=== PATIENT | female | born 1960 | race Caucasian/White ===

== ENCOUNTER 2022-06-24 12:43 | Emergency (ER) | payer MEDICAID ==
[2022-06-24 12:51] VITALS: BP 147/78
[2022-06-24] MEDS ORDERED: HYDROcod/ACETAM 5/325 MG TABLET PO STA (13:07)
--- NOTE | 2022-06-24 13:08 | ED Physician Documentation ---
History of Present Illness - Stated complaint Stated Complaint: R SIDE FACE PX, SWOLLEN - Chief complaint Chief Complaint: Heent - History obtained from History obtained from: Patient - Additonal information Additional information: 2 days ago developed painful rash of the right upper eyelid and radiating back on the right side of the scalp. She does have a bad tooth on that side and wonders if it might be related. PD PAST MEDICAL HISTORY - Present Medications Home Medications: Ambulatory Orders Medication Instructions Recorded Confirmed Bupropion HCl [Wellbutrin Xl] 300 mg PO DAILY 06/24/22 06/24/22 HYDROcod/ACETAM 5/325 [[place] 5/325] 1 - 2 tab PO Q6H PRN #15 tablet 06/24/22 Valacyclovir HCl [Valtrex] 1,000 mg PO TID #30 tablet 06/24/22 predniSONE [Deltasone] 20 mg PO [id number] #21 tab 06/24/22 - Allergies Allergies/Adverse Reactions: Allergies Allergy/AdvReac Type Severity Reaction Status Date / Time Iodinated Contrast Media Allergy Anaphylaxis Verified 06/24/22 12:48 PD ED PE NORMAL - Vitals Vital signs reviewed: Yes - General General: Alert and oriented X 3, No acute distress - HEENT HEENT: PERRL, EOMI, Other (She has zoster in the V1 dermatome, does not affect the eye or the nose. It is all the forehead and scalp.) - Neuro Neuro: Alert and oriented X 3, chief projectionist 2-12 intact, Normal speech Results - Vitals Vitals: Vital Signs - 24 hr 06/24/22 12:48 Temperature 36.5 C Heart Rate 70 Respiratory 16 Rate Blood Pressure 147/78 H O2 Saturation 100 Oxygen O2 Source Room air PD Medical Decision Making - ED course ED course: Shingles in the V1 dermatome but without radiation toward the eye or the nose. We will treat with Valtrex, prednisone taper, and pain control. Departure - Departure Disposition: 01 Home, Self Care Clinical Impression: Shingles Condition: Good Record reviewed to determine appropriate education?: Yes Instructions: ED Shingles Prescriptions: predniSONE [Deltasone] 20 mg PO [id number] #21 tab HYDROcod/ACETAM 5/325 [[place] 5/325] 1 - 2 tab PO Q6H PRN #15 tablet PRN Reason: Pain Valacyclovir HCl [Valtrex] 1,000 mg PO TID #30 tablet Comments: I sent your prescription electronically to the [facility] at [facility] [address] here in [place]. Follow-up with your doctor Wednesday for recheck. Return for new or worsening symptoms. I am prescribing a short course of narcotic pain medication for you. These are potentially dangerous and addictive medications that should be used carefully. These medications may constipate you. Take an fsry-ytj-urnlxtx stool softener (docusate) twice daily with plenty of water while taking these medications. If you go 24 hours without a bowel movement, take labu-fjn-wdjzngl miralax, per package instructions. Do not drink or drive while taking these medications. If you received narcotic or sedating medications while in the emergency department, do not drive for 24 hours. Store this medication in a safe, secure place and out of reach of children. It is a violation of federal law to give or sell this medication to another person or to use in a manner other than prescribed. The ED will not refill narcotic prescriptions, including prescriptions lost or stolen. To dispose of unwanted medications: 1. [facility] [address] in [place] has a medication drop box. They accept prescription medications (in pill form) Wednesday through Wednesday 9:00 a.m. to 5:00 p.m. 2. The [facility] accepts prescription medications (in pill form only) for disposal year round. Call for more information. 3. Contact the [facility] for the next [facility] sponsored prescription drug collection event. , [phone], or [phone]; Note that many narcotic pain relievers also contain Tylenol/acetaminophen. Please ensure that your total dose of acetaminophen from all sources does not exceed 3 g (3000 mg) per day.
== END 2022-06-24 13:22 | disposition home or self-care (01) ==
LOC: ED 12:43
DX: B02.9 Zoster without complications (principal)
CPT/HCPCS: 99283; A9270

== ENCOUNTER 2023-10-08 08:57 | Emergency (ER) | payer MEDICAID ==
[2023-10-08] MEDS: SODIUM CHLORIDE 0.9% 1,000 ML IV STA (09:42)
[2023-10-08 09:43] LABS: BASOPHILS # (AUTO) 0.1 10^3/uL (0.0-0.1); BASOPHILS % (AUTO) 0.8 %; HCT - HEMATOCRIT 40.2 % (37.0-47.0); HGB - HEMOGLOBIN 13.2 g/dL (12.0-16.0); LYMPHOCYTES # (AUTO) 1.9 10^3/uL (1.5-3.5); LYMPHOCYTES % (AUTO) 29.4 %; MEAN CORPUSCULAR HEMOGLOBIN 30.7 pg (27.0-31.0); MEAN CORPUSCULAR HGB CONC 32.8 g/dL (32.0-36.0); MEAN CORPUSCULAR VOLUME 93.5 fL (81.0-99.0); MEAN PLATELET VOLUME 12.5 fL (7.9-10.8); MONOCYTES # (AUTO) 0.4 10^3/uL (0.0-1.0); MONOCYTES % (AUTO) 6.7 %; NEUTROPHILS % (AUTO) 62.9 %; PLT - PLATELET COUNT 254 10^3/uL (130-450); RED CELL DISTRIBUTION WIDTH 12.2 % (12.0-15.0); WHITE BLOOD COUNT 6.4 x10^3/uL (4.8-10.8)
[2023-10-08 09:59] LABS: ALBUMIN 4.2 g/dL (3.2-5.5); ALBUMIN/GLOBULIN RATIO 1.4 (1.0-2.2); BILIRUBIN,TOTAL 0.6 mg/dL (0.2-1.0); CALCIUM 10.1 mg/dL (8.5-10.3); CREATININE 0.8 mg/dL (0.6-1.3); MAGNESIUM 1.8 mg/dL (1.7-2.3); PHOSPHORUS 3.7 mg/dL (2.5-5.0); POTASSIUM 4.1 mmol/L (3.5-4.5); TOTAL PROTEIN 7.3 g/dL (6.4-8.9)
--- NOTE | 2023-10-08 10:03 | ED Physician Documentation ---
PD HPI ABD PAIN - Stated complaint Stated Complaint: ABD PX/SWELLING - Chief complaint Chief Complaint: Abd Pain - History obtained from History obtained from: Patient - History of Present Illness Pain level max: 5 Pain level now: 5 Quality: Cramping, Pain Location: All over / everywhere Improved by: No: Eating, Laying still, Vomiting, BM, Position Worsened by: Moving, Palpation. No: Eating, Breathing Associated symptoms: Dizzy (States feels mildly lightheaded if she stands up quickly). No: Fever, Vomiting, Hematemesis, Diarrhea, Constipation, Melena, Hematochezia, Dysuria, Hematuria, Chest pain, Vaginal dc, Testicular pain - Additional information Additional information: Patient is a 63-year-old female who presents to the emergency department stating that she had a colonoscopy at [facility] 5 days ago. She states that she has had abdominal cramping and pain since that time. She has had chills and felt "weak". No fevers. She contacted her physician who performed the colonoscopy and they recommended that she come in for a CAT scan to evaluate for perforation. She states that they did do biopsies and "burned something". Review of Systems Constitutional: denies: Fever, Chills GI: denies: Vomiting, Diarrhea Skin: denies: Rash Musculoskeletal: denies: Neck pain, Back pain Neurologic: denies: Headache PD PAST MEDICAL HISTORY - Past Medical History Past Medical History: Yes Other Past Medical History: polyps colon - Past Surgical History General: Cholecystectomy, Colonoscopy /SIDE LASTER: Hysterectomy - Present Medications Home Medications: Ambulatory Orders Medication Instructions Recorded Confirmed HYDROcod/ACETAM 5/325 [[place] 5/325] 1 - 2 tab PO Q6H PRN #15 tablet 06/24/22 Valacyclovir HCl [Valtrex] 1,000 mg PO TID #30 tablet 06/24/22 buPROPion HCL [Wellbutrin Xl] 300 mg PO DAILY 06/24/22 06/24/22 predniSONE [Deltasone] 20 mg PO [id number] #21 tab 06/24/22 - Allergies Allergies/Adverse Reactions: Allergies Allergy/AdvReac Type Severity Reaction Status Date / Time Iodinated Contrast Media Allergy Anaphylaxis Verified 10/08/23 09:04 - Social History Does the pt smoke?: No Smoking Status: Never smoker Does the pt drink ETOH?: Yes Does the pt have substance abuse?: No - Immunizations Immunizations are current?: Yes PD ED PE NORMAL - Vitals Vital signs reviewed: Yes - General General: Alert and oriented X 3, No acute distress - HEENT HEENT: Moist mucous membranes - Neck Neck: Supple, no meningeal sign - Cardiac Cardiac: RRR - Respiratory Respiratory: Clear bilaterally - Abdomen Abdomen: Soft, Non distended, Other (Mildly tender to palpation diffusely, no peritoneal signs) - Derm Derm: Warm and dry - Extremities Extremities: No edema, No calf tenderness / cord - Neuro Neuro: Alert and oriented X 3 - Psych Psych: Normal mood, Normal affect Results - Vitals Vitals: Vital Signs - 24 hr 10/08/23 10/08/23 10/08/23 09:00 11:04 12:21 Temperature 36.5 C 36.3 C L Heart Rate 73 61 64 Respiratory 16 16 15 Rate Blood Pressure 158/82 H 144/79 H 143/76 H O2 Saturation 100 99 98 Oxygen O2 Source Room air - Labs Labs: Laboratory Tests 10/08/23 10/08/23 10/08/23 09:37 09:37 11:53 WBC 6.4 RBC 4.30 Hgb 13.2 Hct 40.2 MCV 93.5 MCH 30.7 MCHC 32.8 RDW 12.2 Plt Count 254 MPV 12.5 H Neut # (Auto) 4.0 Lymph # (Auto) 1.9 [place] # (Auto) 0.4 Eos # (Auto) 0.0 Baso # (Auto) 0.1 Absolute Nucleated RBC 0.00 Nucleated RBC % 0.0 Sodium 138 Potassium 4.1 Chloride 104 Carbon Dioxide 28 Anion Gap 6.0 BUN 14 Creatinine 0.8 Estimated GFR (MDRD) 72 L Glucose 99 Calcium 10.1 Phosphorus 3.7 Magnesium 1.8 Total Bilirubin 0.6 AST 21 ALT 21 Alkaline Phosphatase 68 Total Protein 7.3 Albumin 4.2 Globulin 3.1 Albumin/Globulin Ratio 1.4 Lipase 15 Urine Color YELLOW Urine Clarity CLEAR Urine pH 6.0 Ur Specific [place] 1.010 Urine Protein NEGATIVE Urine Glucose (UA) NEGATIVE Urine Ketones NEGATIVE Urine Occult Blood NEGATIVE Urine Nitrite NEGATIVE Urine Bilirubin NEGATIVE Urine Urobilinogen 0.2 (NORMAL) Ur Leukocyte Esterase SMALL H Urine RBC None Seen Urine WBC 4-5 Ur Squamous Epith Cells MOD Squamous H Urine Bacteria Few Ur Microscopic Review INDICATED Urine Culture Comments NOT INDICATED - Rads (name of study) CT abdomen pelvis Relevant Findings:: Final report received, See rad report PD Medical Decision Making - ED course Complexity details: reviewed results, re-evaluated patient, considered differential, d/w patient ED course: 63-year-old female with abdominal pain and feeling generally unwell since a colonoscopy 4 days ago. No significant lab abnormalities. Feels better after IV fluids. Ambulating with a normal steady gait in the emergency department. No focal neurological deficits. No cerebellar findings. GCS 15. No acute findings on CT scan. No evidence of perforation or abscess. No evidence of sepsis. Recommend that she increase her fluid intake and follow-up closely with her GI provider for further care. She will return if she worsens including fevers, worsening pain or other new or worrisome symptoms. Patient counseled regarding signs and symptoms for which I believe and urgent re-evaluation would be necessary. Patient with good understanding of and agreement to plan and is comfortable going home at this time This document was made in part using voice recognition software. While efforts are made to proofread this document, sound alike and grammatical errors may occur. Departure - Departure Disposition: 01 Home, Self Care Clinical Impression: Abdominal pain Qualifiers: Abdominal location: unspecified location Qualified Code(s): R10.9 - Unspecified abdominal pain Condition: Good Instructions: ED Abdominal Pain Female Non-Specific Abdominal Pain Follow-Up: your,doctor in 1 week [Other] Comments: Please follow-up with your doctor for further care. Your CT scan does not show any acute abnormalities. Your laboratory testing does not show any acute abnormalities to explain your symptoms either. Your electrolytes are normal, your blood counts are normal. Please make sure you are drinking plenty of water at home and return if you worsen. EXAM: [id number] CT/ABPEWO ([id number]) PROCEDURE: Abdomen/Pelvis WO INDICATIONS: abd pain s/p colonoscopy TECHNIQUE: A CT scan of the abdomen and pelvis was performed without the use of intravenous contrast. Images were recorded and evaluated at appropriate window settings. Reformats: coronal and sagittal. For radiation dose reduction, the following was used: automated exposure control, adjustment of mA and/or kV according to patient size. COMPARISON: None. FINDINGS: Image quality: Diagnostic. Lower chest: Unremarkable. Liver: No contour-deforming mass. Gallbladder: Removed. Biliary tree: No intrahepatic or extrahepatic dilation, accounting for age. Spleen: No splenomegaly. Pancreas: No pancreatic ductal dilation. Adrenals: No adrenal nodule. Kidneys and ureters: No hydronephrosis. No contour-deforming mass. Stomach, bowel and peritoneum: No gastric or small bowel dilation. No abnormal wall thickening. No pathologic free fluid. Colonic diverticular present without associated inflammatory change. Lymph nodes: No central or retroperitoneal adenopathy. Vessels: No infrarenal aortic aneurysm. Reproductive organs: Unremarkable. Bladder: Bladder wall thickness is normal, accounting for underdistention. No calcified bladder stones. Pelvic lymph nodes: No adenopathy by size criteria. Bones: No aggressive osseous abnormality. Other: No inguinal hernia. Fat-containing ventral hernia. IMPRESSION: No free air or free fluid. Diverticulosis. Forms: PCP List Discharge Date/Time: 10/08/23 12:23
[2023-10-08] MEDS ORDERED: iohexoL-300 100 ML VIAL ONE (10:21)
--- NOTE | 2023-10-08 11:44 | CT Report ---
PROCEDURE: Abdomen/Pelvis WO INDICATIONS: abd pain s/p colonoscopy TECHNIQUE: A CT scan of the abdomen and pelvis was performed without the use of intravenous contrast. Images we re recorded and evaluated at appropriate window settings. Reformats: coronal and sagittal. For radiat ion dose reduction, the following was used: automated exposure control, adjustment of mA and/or kV ac cording to patient size. COMPARISON: None. FINDINGS: Image quality: Diagnostic. Lower chest: Unremarkable. Liver: No contour-deforming mass. Gallbladder: Removed. Biliary tree: No intrahepatic or extrahepatic dilation, accounting for age. Spleen: No splenomegaly. Pancreas: No pancreatic ductal dilation. Adrenals: No adrenal nodule. Kidneys and ureters: No hydronephrosis. No contour-deforming mass. Stomach, bowel and peritoneum: No gastric or small bowel dilation. No abnormal wall thickening. No pa thologic free fluid. Colonic diverticular present without associated inflammatory change. Lymph nodes: No central or retroperitoneal adenopathy. Vessels: No infrarenal aortic aneurysm. Reproductive organs: Unremarkable. Bladder: Bladder wall thickness is normal, accounting for underdistention. No calcified bladder stone s. Pelvic lymph nodes: No adenopathy by size criteria. Bones: No aggressive osseous abnormality. Other: No inguinal hernia. Fat-containing ventral hernia. IMPRESSION: No free air or free fluid. Diverticulosis. Reviewed by: Manisha Rivera MD on 10/08/2023 11:43 AM PDT Approved by: Manisha Rivera MD on 10/08/2023 11:43 AM PDT Station ID: [id number]
[2023-10-08 12:01] LABS: BILIRUBIN,URINE NEGATIVE (NEGATIVE); CLARITY,URINE CLEAR (CLEAR); GLUCOSE, URINE (UA) NEGATIVE (NEGATIVE); KETONES,URINE (UA) NEGATIVE (NEGATIVE); LEUKOCYTE ESTERASE, URINE SMALL (NEGATIVE); NITRITE,URINE NEGATIVE (NEGATIVE); OCCULT BLOOD,URINE NEGATIVE (NEGATIVE); PROTEIN,URINE NEGATIVE (NEGATIVE); UROBILINOGEN,URINE 0.2 (NORMAL) E.U./dL (NORMAL)
[2023-10-08 12:04] LABS: BACTERIA,URINE Few /HPF (None Seen); RBC,URINE None Seen /HPF (0-5); SQUAMOUS EPITHELIAL CELL,UR MOD Squamous (<= Few)
[2023-10-08 12:28] VITALS: BP 143/76; O2SAT 98
== END 2023-10-08 12:23 | disposition home or self-care (01) ==
LOC: ED 08:57
DX: R10.9 Unspecified abdominal pain (principal); Z86.010 Personal history of colon polyps
CPT/HCPCS: 36415; 80053; 81001; 81003; 83690; 83735; 84100; 85025; 87086; 99284